=== PATIENT | male | born 1975 | race Caucasian/White ===

== ENCOUNTER 2016-10-11 19:24 | Emergency (ER) | payer OTHER ==
[~2016-10-11] VITALS: Ht 172.7 cm; Wt 99.0 kg
[2016-10-11 19:42] VITALS: Ht 172.7 cm; Wt 99.0 kg
[2016-10-11] MEDS ORDERED: AMOX1TAB10 PO (19:52)
[2016-10-11] MEDS ORDERED: IBUP-1542 PO (19:52)
--- NOTE | 2016-10-11 20:06 | ERD ---
ER Documentation Chief Complaint Date/Time DATE: 10/11/16 TIME: 19:[address] and fever X1 wk HPI 41-year-old male presents complaining of gradual onset of sore throat and fever 3 days. Associated symptoms include pain with swallowing. He denies difficulty swallowing, shortness of breath, drooling, vocal changes, and neck stiffness. Sick contacts at home include his , has similar symptoms. He has been taking tetracycline which he got from [facility], without relief. ROS All systems reviewed and are negative except as per history of present illness. Medications Home Meds Active Scripts Ibuprofen* (Motrin*) 600 Mg Tab, 600 MG PO Q6, #30 TAB Prov:Isamar Rondon PA-C 10/11/16 Amoxicillin/Potassium Clav (Amox-Clav 875-125 mg Tablet) 875-125 mg Tab, 1 TAB PO BID for 7 Days, #14 TAB Prov:Isamar Rondon PA-C 10/11/16 PMhx/Soc Medical and Surgical Hx: pt denies Medical Hx FmHx Family History: No diabetes Physical Exam Vitals Vital Signs Date Time Temp Pulse Resp B/P Pulse Ox O2 Delivery O2 Flow Rate FiO2 10/11/16 19:42 98.5 77 18 146/97 100 Physical Exam GENERAL: Non-toxic. No apparent signs of distress. Patient speaking in full sentences, no drooling. HEENT: Atraumatic. Mild edema over bilateral parotid gland, tender to palpation. Bilateral eyes are PERRL EOM intact. Normal conjunctiva, no injection. No eyelid or lower eyelid swelling noted. Ears: Normal tympanic membrane, no erythema or bulging. No ear canal swelling. No ear discharge. Nose : no nasal discharge. Throat: Oropharynx normal. Tongue pink and moist. Bilateral tonsillar edema and erythema, no exudate. No pooling of secretions. Uvula is midline. No trismus . No lymphadenopathy. No meningismus LUNGS: Clear to auscultation. No accessory muscle use. No wheezing, no crackles. No signs or symptoms of respiratory distress. HEART: Regular rate and rhythm. No murmurs, clicks, rubs or gallops. NEURO: Cranial nerves are grossly intact. Normal mental status for age. Good muscle tone. SKIN: There is no apparent rash, petechiae, erythema or swelling. Good skin turgor. Procedures/MDM Patient presented with complaint of sore throat 3 days and fever on examination he had bilateral tonsillar edema and erythema. He also had swelling and tenderness to palpation of bilateral parotid glands. He states that his left parotid gland has been inflamed for one year, right parotid gland has been inflamed over the past few months. I explained that I'll be prescribing him antibiotics, however I gave him strict instructions to follow-up with a clinic for further workup of chronic parotitis. I do not feel that emergent treatment is necessary at this time, as patient has stable vital signs and appears to be in no acute distress. On exam he had no pooling of secretions, was speaking in full sentences, no signs of respiratory distress. I low suspicion for epiglottitis, retropharyngeal abscess, peritonsillar abscess, meningitis, and sepsis. Patient given prescription for Augmentin and a list of community clinics to follow-up with. He is stable for discharge and outpatient management. Advised to follow-up with a PCP in one to 2 days. Departure Diagnosis: Primary Impression: Sore throat Additional Impression: Parotitis Condition: Good Patient Instructions: Self-Care for Sore Throats Ref[facility] Usted se trent hecho un examen mdico de control que le indica que no est en odell condicin que requiera tratamiento urgente en el Departamento de Emergencia. Un estudio ms profundo y el tratamiento de burt condicin pueden esperar sin ningn riesgo hasta que usted sea atendida/o en el consultorio de burt mdico o odell cl pk. Es responsabilidad suya arreglar odell parvin para el seguimiento del phylicia. MANEJO DE CONDICIONES NO URGENTES EN EL FUTURO 1) Si usted tiene un mdico de atencin primaria: Usted debera llamar a burt mdico de atencin primaria antes de venir al departamento de emergencia. Despus de las horas de consultorio, burt doctor o burt asociado/a est disponible por telfono. El mdico o enfermero de carmen en el servicio telefnico puede asesorarle por nancy medio para atender el problema, o phylicia contrario se puede programar odell parvin. 2) Si usted no tiene un mdico de atencin primaria: Llame al mdico o clnica de referencia que aparece abajo jay las horas de consultorio para hacer odell parvin para que le vean. CLINICAS: [place] [phone] [facility] [phone] [facility] [phone] [facility] [phone] [place] [phone] [facility] [phone] Additional Instructions: Llame al doctor MAANA y wild odell PARVIN PARA DENTRO DE 1-2 DONIS.Dgale a la secretaria que nosotros le instruimos hacer esta parvin.Avise o llame si burt condicin se empeora antes de la parvin. Regresa aqui si peor o no mejor. Isamar Rondon PA-C Oct 11, 2016 20:06
== END 2016-10-11 19:58 | disposition home or self-care (01) ==
LOC: FTE 19:24 → E/R 19:58
DX: J02.9 Acute pharyngitis, unspecified (principal); K11.20 Sialoadenitis, unspecified
CPT/HCPCS: 99283